=== PATIENT | male | born 1950 ===

== ENCOUNTER → 2016-12-09 | Outpatient (REF) ==
[2016-12-09 22:05] LABS: PSA-TOTAL 0.84 ng/mL (0-4)
[2016-12-09 22:14] LABS: THYROID STIMULATING HORMONE 0.938 uIU/mL (0.465-4.680)
== END ==
LOC: ZLAB.WCH 21:17
PROVIDERS: Internal Medicine
DX: Z01.89 Encounter for other specified special examinations (principal)
CPT/HCPCS: G0103